=== PATIENT | male | born 1990 | race Caucasian/White ===

== ENCOUNTER 2017-07-18 10:45 | Emergency (ER) | payer BC ==
[~2017-07-18] VITALS: Ht 182.8 cm; Wt 68.0 kg
[~2017-07-18 10:45] MED LIST: HYDROCODONE BIT1 T11 PO; IBU-6600 MG PO; KEFLEX500 MG PO; MOTRIN800 MG PO; NAPROSYN500 MG PO; NKHM; VOLTAREN50 M1 PO
[2017-07-18] MEDS ORDERED: NAPROSYN500 MG PO (10:56)
== END 2017-07-18 13:32 | disposition home or self-care (01) ==
LOC: ED 10:45
DX: S60.221A Contusion of right hand, initial encounter (principal); R03.0 Elevated blood-pressure reading, without diagnosis of hypertension; F17.200 Nicotine dependence, unspecified, uncomplicated; Z88.1 Allergy status to other antibiotic agents; X58.XXXA Exposure to other specified factors, initial encounter; Y93.89 Activity, other specified; Y92.89 Other specified places as the place of occurrence of the external cause; Y99.9 Unspecified external cause status

== ENCOUNTER 2017-08-13 03:36 | Emergency (ER) | payer OTHER, BC ==
[~2017-08-13] VITALS: Ht 187.9 cm; Wt 86.2 kg
[2017-08-13 04:08] LABS: BASO # 0.1 10*3/uL (0.0-0.1); BASO % 0.6 % (0.0-1.0); EOS # 0.1 10*3/uL (0.0-0.4); EOS % 0.9 % (1.0-4.0); HEMATOCRIT 45.5 % (42.0-52.0); HEMOGLOBIN 15.6 g/dl (14.0-18.0); LYMPH # 4.1 10*3/uL (1.3-4.4); LYMPH % 36.8 % (27.0-41.0); MEAN CELL VOLUME 91.4 fl (80.0-94.0); MEAN CORPUSCULAR HGB 31.3 pg (27.0-31.0); MEAN CORPUSCULAR HGB CONC 34.3 g/dl (33.0-37.0); MEAN PLATELET VOLUME 10.4 fl (9.6-12.3); MONO % 8.7 % (3.0-9.0); NEUT # 5.9 10*3/uL (2.3-7.9); NEUT % 52.4 % (47.0-73.0); PLATELET COUNT AUTOMATED 269 10*3/uL (130-400); RED BLOOD COUNT 4.98 10*6/uL (4.50-5.90); RED CELL DISTRI WIDTH 13.1 % (0-14.5); WHITE BLOOD COUNT 11.2 10*3/uL (4.8-10.8)
[2017-08-13 04:19] LABS: ACT PARTIAL THROMBO TIME 23.9 SECONDS (20.8-31.5)
[2017-08-13 04:24] LABS: ALBUMIN 4.3 gm/dl (3.1-4.5); ALKALINE PHOSPHATASE 93 U/L (45-117); BUN 7 mg/dl (7-24); CHLORIDE 108 mmol/L (98-107); CREATININE 0.97 mg/dL (0.70-1.30); LIPASE 193 U/L (73-393); MAGNESIUM 2.4 mg/dL (1.5-2.1); POTASSIUM 3.8 mmol/L (3.5-5.1); SGOT/AST 29 IU/L (3-35); SGPT/ALT 30 U/L (12-78); SODIUM 142 mmol/L (136-145); TOTAL PROTEIN 8.6 gm/dL (6.4-8.2)
[2017-08-13 04:27] LABS: ACETAMINOPHEN (TYLENOL) < 2.0 ug/ml (10-30); TROPONIN I < 0.015 ng/ml (<0.045)
[2017-08-13 05:13] LABS: BILIRUBIN NEGATIVE (NEGATIVE); BLOOD NEGATIVE (NEGATIVE); CLARITY CLEAR (CLEAR); COLOR YELLOW (YELLOW); GLUCOSE NEGATIVE (NEGATIVE); KETONE NEGATIVE (NEGATIVE); LEUKO ESTERASE NEGATIVE (NEGATIVE); NITRITE NEGATIVE (NEGATIVE); PH 7.5 (5.0-9.0); SPECIFIC GRAVITY <= 1.005 (1.005-1.030); UROBILINOGEN 0.2 E.U./dl (0.2-1.0)
[2017-08-13 05:23] LABS: URINE AMPHETAMINES < 1000 (1000ng/ml); URINE BARBITURATES < 200 (200ng/ml); URINE BENZODIAZEPINES < 200 (200ng/ml); URINE CANNABINOIDS (THC) > 50 (50ng/ml); URINE COCAINE < 300 (300ng/ml); URINE METHADONE < 300 (300ng/ml); URINE OPIATES < 300 (300ng/ml)
[2017-08-13 05:33] LABS: BACTERIA TRACE; EPITHELIAL CELLS 0-2; RBC 0-2 rbc/hpf (0-2); WBC 0-2 wbc/hpf (0-5)
[2017-08-13 05:34] LABS: URINE PHENCYCLIDINE < 25 (25ng/ml)
[2017-08-13] MEDS ORDERED: ORPHENADRINE E100 MG PO ×2 (05:58→06:18)
[2017-08-13] MEDS ORDERED: Motrin,Rufen800 MG PO (06:18)
== END 2017-08-13 06:41 | disposition home or self-care (01) ==
LOC: ED 03:36
PROVIDERS: Emergency Medicine Emergency Medical Services
DX: S16.1XXA Strain of muscle, fascia and tendon at neck level, initial encounter (principal); F10.129 Alcohol abuse with intoxication, unspecified; F45.8 Other somatoform disorders; Z88.1 Allergy status to other antibiotic agents; V49.49XA Driver injured in collision with other motor vehicles in traffic accident, initial encounter; Y93.89 Activity, other specified; Y92.413 State road as the place of occurrence of the external cause; Y99.8 Other external cause status

== ENCOUNTER → 2018-03-26 | Day surgery (SDC) | payer BC, OTHER ==
[~2018-03-26] VITALS: Ht 182.8 cm; Wt 68.0 kg
[~2018-03-26] MED LIST changes: +Motrin,Rufen800 MG PO; +ORPHENADRINE E100 MG PO
--- NOTE | ~2018-03-26 | PROC NOTE ---
[place], [place] PROCEDURE NOTE NAME: CLARISSA DEUTSCH [facility] #: [id number] UNIT #: [id number] ROOM: DOCTOR: JEREMY BAUTISTA MD BIRTHDATE: [birth year] DOS: 03/26/2018 PREOPERATIVE DIAGNOSES: Diarrhea, lower gastrointestinal bleed. POSTOPERATIVE DIAGNOSES: Diarrhea, lower gastrointestinal bleed. PROCEDURE: Colonoscopy with random biopsies (4). INDICATIONS: This is a 27-year-old gentleman with a history of multiple episodes of diarrhea with intermittent lower GI bleeding who is here for the above-mentioned procedure. The procedure and its complications were explained to the patient in detail preoperatively. Complications that were discussed included but were not limited to, bleeding, colon perforation, missed lesions, prolonged pain. He agreed to proceed. DESCRIPTION OF PROCEDURE: After identifying the patient, the patient was brought in the endoscopy suite and placed in the left lateral position. After IV sedation was administered, a timeout procedure was called and a digital rectal exam was performed. This was within normal limits. An adult colonoscope was now introduced into the anal canal and advanced sequentially into the rectum, sigmoid colon, descending colon, transverse colon, ascending colon up to the cecum. Upon reaching the cecum, the scope was withdrawn. Total withdrawal time was approximately 7 minutes. Multiple biopsies in the region of the ascending colon, transverse colon, descending colon and sigmoid colon were taken and sent for histopathological diagnosis. The scope was then drawn in the region of the rectum, it was retroflexed and was found to have minimal internal hemorrhoids, but no complications such as bleeding. The scope was withdrawn and the patient was brought back to the recovery in stable fashion. There were no complications. Based on these findings, the patient is recommended to have another colonoscopy in about 5-10 years or sooner if he had any new symptoms. Jeremy Bautista MD CM:PROCNOTE:PROCEDURE NOTE [id number] JEREMY BAUTISTA MD
[2018-03-26 10:12] VITALS: BP 117/77
[2018-03-26 11:05] VITALS: BP 121/72
[2018-03-26 11:20] VITALS: BP 115/73
[2018-03-26 11:31] VITALS: BP 122/69
== END | disposition home or self-care (01) ==
LOC: SDC 03-23 14:45
DX: K64.8 Other hemorrhoids (principal); F17.210 Nicotine dependence, cigarettes, uncomplicated; Z88.8 Allergy status to other drugs, medicaments and biological substances

== ENCOUNTER 2019-01-20 12:19 | Emergency (ER) | payer BC, OTHER ==
[~2019-01-20] VITALS: Ht 182.8 cm; Wt 70.3 kg
[2019-01-20 12:48] LABS: BASO # 0.1 10*3/uL (0.0-0.1); BASO % 0.3 % (0.0-1.0); EOS % 0.2 % (1.0-4.0); HEMATOCRIT 50.2 % (42.0-52.0); HEMOGLOBIN 17.6 g/dl (14.0-18.0); LYMPH # 1.2 10*3/uL (1.3-4.4); LYMPH % 6.7 % (27.0-41.0); MEAN CELL VOLUME 90.5 fl (80.0-94.0); MEAN CORPUSCULAR HGB 31.7 pg (27.0-31.0); MEAN CORPUSCULAR HGB CONC 35.1 g/dl (33.0-37.0); MEAN PLATELET VOLUME 10.5 fl (9.6-12.3); MONO # 1.3 10*3/uL (0.1-1.0); MONO % 7.8 % (3.0-9.0); NEUT # 14.5 10*3/uL (2.3-7.9); NEUT % 84.6 % (47.0-73.0); PLATELET COUNT AUTOMATED 252 10*3/uL (130-400); RED BLOOD COUNT 5.55 10*6/uL (4.50-5.90); RED CELL DISTRI WIDTH 13.4 % (0-14.5); WHITE BLOOD COUNT 17.1 10*3/uL (4.8-10.8)
[2019-01-20 12:56] LABS: ACT PARTIAL THROMBO TIME 22.1 SECONDS (20.8-31.5); INTERNATIONAL NORM RATIO 0.9 (2.0-3.5)
[2019-01-20 13:00] LABS: BILIRUBIN NEGATIVE (NEGATIVE); BLOOD NEGATIVE (NEGATIVE); CLARITY SL CLOUDY (CLEAR); COLOR YELLOW (YELLOW); GLUCOSE NEGATIVE (NEGATIVE); KETONE NEGATIVE (NEGATIVE); LEUKO ESTERASE NEGATIVE (NEGATIVE); NITRITE NEGATIVE (NEGATIVE); SPECIFIC GRAVITY 1.025 (1.005-1.030); UROBILINOGEN 0.2 E.U./dl (0.2-1.0)
[2019-01-20 13:14] LABS: ALBUMIN 4.5 gm/dl (3.1-4.5); ALKALINE PHOSPHATASE 102 U/L (45-117); BUN 14 mg/dl (7-24); CHLORIDE 109 mmol/L (98-107); CREATININE 1.11 mg/dL (0.70-1.30); LIPASE 174 U/L (73-393); SGOT/AST 19 IU/L (3-35); SGPT/ALT 49 U/L (12-78); SODIUM 139 mmol/L (136-145); TOTAL PROTEIN 8.8 gm/dL (6.4-8.2)
[2019-01-20 13:54] LABS: BACTERIA 1+; CALCIUM OXALATE CRYSTALS TRACE; MUCOUS 2+
[2019-01-20] MEDS ORDERED: ZOFRAN4 MG PO (14:47)
== END 2019-01-20 14:53 | disposition home or self-care (01) ==
LOC: ED 12:19
PROVIDERS: Nurse Practitioner Family
DX: A08.4 Viral intestinal infection, unspecified (principal); Z88.1 Allergy status to other antibiotic agents

== ENCOUNTER 2019-07-21 10:02 | Emergency (ER) | payer OTHER ==
[~2019-07-21] VITALS: Ht 182.8 cm; Wt 72.6 kg
[~2019-07-21 10:02] MED LIST changes: +ZOFRAN4 MG PO
== END 2019-07-21 10:25 | disposition home or self-care (01) ==
LOC: ED 10:02
DX: L25.9 Unspecified contact dermatitis, unspecified cause (principal); Z88.1 Allergy status to other antibiotic agents